=== PATIENT | male | born 1950 | race Caucasian/White ===

== ENCOUNTER 2018-03-15 23:00 | Emergency (ER) | payer MEDICARE, OTHER ==
[2018-03-15 23:18] VITALS: BP 163/93
[2018-03-15 23:46] LABS: BILIRUBIN,URINE NEGATIVE (NEGATIVE); GLUCOSE, URINE (UA) NEGATIVE (NEGATIVE); KETONES,URINE (UA) NEGATIVE (NEGATIVE); LEUKOCYTE ESTERASE, URINE NEGATIVE (NEGATIVE); NITRITE,URINE NEGATIVE (NEGATIVE); OCCULT BLOOD,URINE SMALL (NEGATIVE); PROTEIN,URINE NEGATIVE (NEGATIVE); UROBILINOGEN,URINE 0.2 (NORMAL) E.U./dL (NORMAL)
[2018-03-15 23:57] LABS: BACTERIA,URINE None Seen /HPF (None Seen); CLARITY,URINE CLEAR (CLEAR); RBC,URINE 0-5 /HPF (0-5); SQUAMOUS EPITHELIAL CELL,UR RARE Squamous (<= Few)
--- NOTE | 2018-03-16 00:26 | ED Physician Documentation ---
PD HPI MALE - Stated complaint Stated Complaint: UNABLE TO URINATE - Chief complaint Chief Complaint: Abd Pain - History obtained from History obtained from: Patient, Family - History of Present Illness Timing - onset: Today Timing - details: Gradual onset, Still present Associated symptoms: Unable to urinate Similar symptoms before: Work up / diagnostics Recently seen: Not recently seen - Additional information Additional information: patient is a 67 year old male with a history of bph who is presenting to the emergency department for urinary retention. Patient states that he has had issues with mild retention in the past but nothing like this. Patient reports that he is normally able to control it by being patient with his urination and limiting his PO intake. Review of Systems Ten Systems: 10 systems reviewed and negative Constitutional: denies: Fever, Chills GI: reports: Abdominal Pain, Abdominal Swelling. denies: Nausea, Vomiting : reports: Unable to Void PD ED PE NORMAL - Vitals Vital signs reviewed: Yes - General General: Alert and oriented X 3 - HEENT HEENT: Atraumatic, Moist mucous membranes - Cardiac Cardiac: RRR - Respiratory Respiratory: No respiratory distress - Derm Derm: Normal color, Warm and dry - Extremities Extremities: No deformity - Neuro Neuro: Alert and oriented X 3 Eye Opening: Spontaneous - Psych Psych: Normal mood PD ED PE EXPANDED - Abdomen Abdomen: Distended, Tender to palpation, Suprapubic Results - Vitals Vitals: Vital Signs - 24 hr 03/15/18 23:05 Temperature 36.0 C L Heart Rate 62 Respiratory 20 Rate Blood Pressure 163/93 H O2 Saturation 100 - Labs Labs: Laboratory Tests 03/15/18 23:28 Urine Color YELLOW Urine Clarity CLEAR Urine pH 7.0 Ur Specific [place] <=1.005 Urine Protein NEGATIVE Urine Glucose (UA) NEGATIVE Urine Ketones NEGATIVE Urine Occult Blood SMALL H Urine Nitrite NEGATIVE Urine Bilirubin NEGATIVE Urine Urobilinogen 0.2 (NORMAL) Ur Leukocyte Esterase NEGATIVE Urine RBC 0-5 Urine WBC 0-3 Ur Squamous Epith Cells RARE Squamous Urine Bacteria None Seen Ur Microscopic Review INDICATED Urine Culture Comments NOT INDICATED PD MEDICAL DECISION MAKING - ED course Complexity details: reviewed old records, reviewed results, re-evaluated patient , considered differential, d/w patient, d/w family ED course: Patient was seen and evaluated at bedside. bladder scan was performed and showed more than a liter of fluid. catheter was placed and about a liter of urine was removed. Urine was sent for urinalysis and showed no abnormalities. Patient was given a leg bag, patient had urologist who he said he would call. Patient required no further inpatient work up and was stable for discharge with outpatient follow up. Departure - Departure Disposition: 01 Home, Self Care Clinical Impression: Urinary retention due to benign prostatic hyperplasia Condition: Stable Instructions: ED Catheter Care Barrios, ED Retention Urinary Male Follow-Up: Magui Casey ARNP [Primary Care Provider] - Comments: Your symptoms today are being caused by urinary retention, likely secondary to your prostate. A barrios catheter has been placed and should remain in until you are able to follow up with your doctor or urologist. You may return to the emergency department at any time for issues with the catheter, new, worsening or uncontrollable symptoms. Discharge Date/Time: 03/16/18 00:35
== END 2018-03-16 00:35 | disposition home or self-care (01) ==
LOC: ED 23:00
DX: N40.1 Benign prostatic hyperplasia with lower urinary tract symptoms (principal); R33.8 Other retention of urine
CPT/HCPCS: 51702; 51798; 81001; 81003; 87086; 99283

== ENCOUNTER 2018-04-24 13:26 | Emergency (ER) | END 2018-04-24 14:54 | disposition home or self-care (01) | CPT/HCPCS: 12034; 90471; 90715; 99283; A9270 ==

== ENCOUNTER 2018-07-19 10:35 | Outpatient (CLI) | payer MEDICARE ==
[2018-07-19 20:11] LABS: CREATININE 0.8 mg/dL (0.6-1.2)
== END 2018-07-19 10:36 | disposition home or self-care (01) ==
LOC: LAB.F 10:35
PROVIDERS: ATTEND Physician Assistant Medical
DX: I77.79 Dissection of other specified artery (principal)
CPT/HCPCS: 36415; 82565; 84520

== ENCOUNTER 2021-04-22 08:00 | Outpatient (CLI) | payer MEDICARE | END 2021-04-22 23:59 | disposition home or self-care (01) | LOC: LAB.S 08:00 | PROVIDERS: ATTEND Physician Assistant Medical | DX: R22.1 Localized swelling, mass and lump, neck (principal); R07.0 Pain in throat; Z20.822 Contact with and (suspected) exposure to COVID-19 | CPT/HCPCS: 87070; U0004 ==

== ENCOUNTER 2022-01-26 14:46 | Emergency (ER) | payer MEDICARE ==
--- NOTE | 2022-01-26 14:51 | ED Physician Documentation ---
PD HPI LOWER EXT INJURY - Stated complaint Stated Complaint: FALL,RIGHT ANKLE & LEFT HAND INJURY - History obtained from History obtained from: Patient - History of Present Illness PD HPI LOW EXT INJURY LOCATION: Right, Ankle Type of injury: Fall (He states he tripped on objects in the garage with a twisting of the ankle in inversion. [place] a snap. Painful for weightbearing. Also laceration of the left ring and little fingers as he grabbed a shelf unit.), Twist Where injury occurred: Home Timing - onset: How many hours ago (1-2) Timing - details: Abrupt onset, Still present Improved by: Rest Worsened by: Moving, Palpating, Other (weight bearing) Associated symptoms: Swelling. No: Weakness, Numbness Similar symptoms before: Diagnosis (He actually had a ankle fracture on the left ankle few years ago that required surgery. He states this feels similar.) Recently seen: Not recently seen, Other (His neighbor friend is an orthopedist and did look at the ankle briefly. He will get set up with orthopedic group in [place] for repair if needed.) Review of Systems Skin: reports: Laceration (s) (left ring/little fingers.) Musculoskeletal: reports: Joint pain (right ankle), Joint swelling Neurologic: denies: Focal weakness, Numbness, Headache, Head injury PD PAST MEDICAL HISTORY - Past Medical History Cardiovascular: None Respiratory: None Neuro: None Endocrine/Autoimmune: None - Present Medications Home Medications: Ambulatory Orders Medication Instructions Recorded Confirmed Aspirin 2 tab ORAL DAILY 04/24/18 04/24/18 Atorvastatin [Lipitor] 80 mg 04/24/18 HYDROcod/ACETAM 5/325 [[place] 5/325] 1 - 2 ea PO Q6H PRN #7 tablet 04/24/18 Tamsulosin HCl [Flomax] 0.4 mg PO DAILY 04/24/18 04/24/18 amLODIPine [Norvasc] 2.5 mg ORAL DAILY 04/24/18 04/24/18 cephALEXin [Keflex] 500 mg PO QID #20 capsule 04/24/18 lisinopriL [Lisinopril] 10 mg PO 04/24/18 - Allergies Allergies/Adverse Reactions: Allergies Allergy/AdvReac Type Severity Reaction Status Date / Time pseudoephedrine AdvReac Unknown Verified 01/26/22 15:00 [From Sudafed] PD ED PE NORMAL - Vitals Vital signs reviewed: Yes - General General: Alert and oriented X 3, No acute distress, Well developed/nourished - HEENT HEENT: Atraumatic - Neck Neck: Supple, no meningeal sign, No adenopathy - Derm Derm: Normal color, Warm and dry - Extremities Extremities: Other (Left ring and little fingers with a laceration to the fatty tissue on the palmar proximal phalange ease. Minimal bleeding. The right ankle shows tenderness and swelling both lateral and medial. Normal pulse color and capillary refill. There is swelling more laterally. Achilles is firm, n/t.) - Neuro Neuro: Alert and oriented X 3, No motor deficit, No sensory deficit, Normal speech Results - Vitals Vitals: Vital Signs - 24 hr 01/26/22 14:57 Temperature 36.7 C Heart Rate 66 Respiratory 16 Rate Blood Pressure 173/101 H O2 Saturation 99 Oxygen O2 Source Room air - Rads (name of study) right ankle Radiology: Prelim report reviewed (Distal fibular fracture with slight widening of the medial mortise.), See rad report Procedures - Laceration (location) left ring finger Length in cm: 1.5 Wound type: Linear, Into subcut fat, Clean Neurovascular status: Sensory intact, Motor intact, Vascular intact Tendon involvement: Tendon intact Anesthesia: Lidocaine 1% with epi Wound preparation: Irrigated copiously NS, Wound explored, To the base Skin layer closure: Nylon, Interrupted, Size #-0 - enter number (4), Sutures - enter # (4) Other: Patient tolerated well, No complications, Neurovascular intact, Dressing applied, Tetanus UTD - Splint (location) right ankle Splint applied by: Tech Type of splint: Fiberglass, Posterior, Stirrup Other: Patient tolerated well, No complications, Neurovascular intact, Crutches provided (he already had some he brought from home.) Departure - Departure Disposition: 01 Home, Self Care Clinical Impression: Fibula fracture Qualifiers: Encounter type: initial encounter Fibula location: shaft Fracture type: closed Fracture morphology: oblique Fracture alignment: nondisplaced Laterality: right Qualified Code(s): S82.434A - Nondisplaced oblique fracture of shaft of right fibula, initial encounter for closed fracture Finger laceration Qualifiers: Encounter type: initial encounter Finger: ring finger Damage to nail status: without damage Foreign body presence: without foreign body Laterality: left Qualified Code(s): S61.215A - Laceration without foreign body of left ring finger without damage to nail, initial encounter Condition: Stable Record reviewed to determine appropriate education?: Yes Instructions: ED Fx Ankle General Follow-Up: Renay Rowell MD [Primary Care Provider] - Comments: Splint for the ankle to keep it immobile. Nonweightbearing. Use the crutches for being off the ankle. Rest ice elevate the ankle to reduce swelling. Follow-up with orthopedics regarding subsequent care and possible surgical repair. We did provide you with pictures printed as well as the disc. I would suggest some anti-inflammatory such as ibuprofen 600 mg 3 times a day with food for the next several days to week. Add Tylenol every 4-6 hours if needed for pain. For the laceration on the fingers, clean with soap and water and apply ointment daily. It is okay to wash and shower. Clean off the wound twice a day with soap and water, or peroxide and water. Apply some antibiotic ointment to it to keep it moist. Also to watch for signs of infection such as purulence, redness or increasing pain. Return to your primary care or the ER at the specified time for suture removal. Suture removal 9 or 10 days.
[2022-01-26 16:23] VITALS: BP 148/93
--- NOTE | 2022-01-26 16:25 | XRAY Report ---
PROCEDURE: Ankle 3 View RT INDICATIONS: inversion/twist ankle, with pain/swelling TECHNIQUE: 3 views of the ankle were acquired. COMPARISON: None FINDINGS: Bones: Oblique fracture through the distal fibula with minimal displacement. The medial malleolus and ankle mortise appears intact. Associated lateral soft tissue swelling. Described vascular calcification noted. Soft tissues: No tibiotalar joint effusion. Achilles tendon appears normal. IMPRESSION: Oblique distal fibular fracture Reviewed by: Isiah Hernandez MD on 01/26/2022 3:24 PM KEELY Approved by: Isiah Hernandez MD on 01/26/2022 3:24 PM AKKI Station ID: [id number]
== END 2022-01-26 16:23 | disposition home or self-care (01) ==
LOC: ED 14:46
DX: S82.434A Nondisplaced oblique fracture of shaft of right fibula, initial encounter for closed fracture (principal); S61.215A Laceration without foreign body of left ring finger without damage to nail, initial encounter; W01.0XXA Fall on same level from slipping, tripping and stumbling without subsequent striking against object, initial encounter; Y92.008 Other place in unspecified non-institutional (private) residence as the place of occurrence of the external cause
CPT/HCPCS: 12001; 99283